=== PATIENT | female | born 1965 | race Two or more races ===

== ENCOUNTER 2017-06-03 19:22 | Emergency (ER) | payer BC ==
[~2017-06-03] VITALS: Ht 144.8 cm; Wt 74.8 kg
[~2017-06-03 19:22] MED LIST: COZAAR50 MG PO
== END 2017-06-03 20:20 | disposition short-term general hospital (02) ==
LOC: ER 19:22
DX: H66.92 Otitis media, unspecified, left ear (principal); J06.9 Acute upper respiratory infection, unspecified; I10 Essential (primary) hypertension; E11.9 Type 2 diabetes mellitus without complications; Z79.899 Other long term (current) drug therapy; Z79.84 Long term (current) use of oral hypoglycemic drugs